=== PATIENT | male | born 1945 | race Caucasian/White ===

== ENCOUNTER 2021-06-03 20:18 | Emergency (ER) | payer MEDICARE ==
[~2021-06-03] VITALS: Ht 177.8 cm; Wt 76.9 kg
[2021-06-03] MEDS ORDERED: ATOR1TAB21 PO (20:40)
[2021-06-03] MEDS ORDERED: ASPI81CH33 PO (20:40)
[2021-06-03 22:09] LABS: ALBUMIN 3.6 GM/DL (3.2-5.2); BASO # 0.1 10^3/uL (0.0-0.2); BASO % 0.7 % (0.0-1.0); BILIRUBIN,DIRECT 0.1 MG/DL (0.0-0.2); BILIRUBIN,TOTAL 0.5 MG/DL (0.2-1.0); CALCIUM LEVEL 8.6 MG/DL (8.8-10.2); CREATININE FOR GFR 1.35 MG/DL (0.70-1.30); EOS # 0.4 10^3/uL (0.0-0.5); EOS % 4.6 % (0.0-3.0); GLOMERULAR FILTRATION RATE 54.4 (>42); HEMATOCRIT 36.8 % (42.0-52.0); HEMOGLOBIN 12.3 g/dl (13.5-17.5); LYMPH # 2.8 10^3/uL (1.5-5.0); LYMPH % 36.9 % (24.0-44.0); MEAN CORPUSCULAR HEMOGLOBIN 30.1 pg (27.0-33.0); MEAN CORPUSCULAR HGB CONC 33.4 g/dl (32.0-36.5); MEAN CORPUSCULAR VOLUME 90.2 fl (80.0-96.0); MONO # 0.8 10^3/uL (0.0-0.8); MONO % 9.8 % (2.0-8.0); NEUTROPHILS # 3.7 10^3/uL (1.5-8.5); NEUTROPHILS % 47.9 % (36.0-66.0); PLATELET COUNT, AUTOMATED 227 10^3/uL (150-450); POTASSIUM SERUM 4.1 MEQ/L (3.5-5.1); RED BLOOD COUNT 4.08 10^6/uL (4.30-6.10); TOTAL PROTEIN 6.7 GM/DL (6.4-8.2); WHITE BLOOD COUNT 7.7 10^3/uL (4.0-10.0)
--- NOTE | 2021-06-03 23:28 | REPVR ---
PROCEDURE INFORMATION: Exam: US Duplex Left Lower Extremity Veins, Limited Exam date and time: 06/03/2021 10:52 PM Age: 76 years old Clinical indication: Pain; Leg, upper and leg, lower; Left; Additional info: Lle pain R/O dvt TECHNIQUE: Imaging protocol: Real-time Duplex ultrasound of the Left Lower Extremity with 2-D mcginnis scale, color Doppler flow and spectral waveform analysis with image documentation. Limited exam focused on the left lower extremity veins. COMPARISON: No relevant prior studies available. FINDINGS: Left deep veins: Unremarkable. The common femoral, femoral, popliteal, posterior tibial and peroneal veins are patent without thrombus. Normal compressibility, augmentation response and Doppler waveforms. Left superficial veins: Unremarkable. Saphenofemoral junction is patent without thrombus. Soft tissues: Unremarkable. IMPRESSION: No sonographic evidence of deep vein thrombosis. Electronically signed by: Ousmane Ramachandran On 06/03/2021 23:27:47 PM
[2021-06-04 00:18] VITALS: BP 132/76
== END 2021-06-04 00:21 | disposition home or self-care (01) ==
LOC: M ED 20:18
DX: M79.605 Pain in left leg (principal); E78.5 Hyperlipidemia, unspecified; Z87.891 Personal history of nicotine dependence